=== PATIENT | male | born 1965 | race African-American/Black ===

== ENCOUNTER 2018-05-17 06:42 | Day surgery (SDC) | payer MEDICARE, OTHER ==
[~2018-05-17] VITALS: Ht 195.6 cm; Wt 123.4 kg
[~2018-05-17 06:42] MED LIST: FEBU40TA PO; INSHUMSS SUBCUT; INSU100I13 SQ; INSU100I19 SQ; OLME1TAB30 PO; ROSU10TA PO; VICTOZA
[2018-05-17] MEDS ORDERED: SODIUM CHLORIDE 0.9% 1,000 ML IV SCH (07:45)
[2018-05-17] MEDS ORDERED: BUPIVACAINE HCL/PF 0.5% (5MG/ML) 10ML ONE (08:29)
[2018-05-17] MEDS ORDERED: NORMAL SALINE 0.9% 10 ML SYR ONE (08:30)
[2018-05-17] MEDS ORDERED: BUPIVACAINE HCL/EPINEPHRINE 0.5%/0.0005 30ML ONE (08:30)
[2018-05-17] MEDS ORDERED: BACITRACIN 50,000 UNITS/VIAL ONE (08:30)
[2018-05-17] MEDS ORDERED: FENTANYL CITRATE/PF 50MCG/ML 2ML VIAL ONE (09:01)
[2018-05-17] MEDS ORDERED: PROPOFOL 200MG/20ML VIAL IV ONE (09:02)
[2018-05-17] MEDS ORDERED: MIDAZOLAM HCL 2 MG/2 ML VIAL ONE (09:02)
[2018-05-17] MEDS ORDERED: BACITRACIN ZINC 15GM TUBE TOP ONE (09:29)
[2018-05-17] MEDS ORDERED: ONDANSETRON HCL 4MG/2ML INJ IV PRN (09:45)
[2018-05-17] MEDS ORDERED: HYDROMORPHONE HCL/PF 2MG/ML CPJ IV PRN (09:45)
[2018-05-17] MEDS ORDERED: LABETALOL 5MG/ML SYR 20 MG/4 ML SYRINGE IV PRN (09:45)
[2018-05-17] MEDS ORDERED: MEPERIDINE HCL/PF 25MG/ML CPJ IV PRN (09:45)
== END 2018-05-17 11:15 | disposition home or self-care (01) ==
LOC: OR 06:42
PROVIDERS: ATTEND Urology
DX: A63.0 Anogenital (venereal) warts (principal); E11.9 Type 2 diabetes mellitus without complications; I10 Essential (primary) hypertension; Z79.899 Other long term (current) drug therapy; Z79.4 Long term (current) use of insulin; Z98.890 Other specified postprocedural states
CPT/HCPCS: 54055; 82962; 88305; J2250; J3010; J3490; J7030; A4216; J0171; J2704

== ENCOUNTER 2018-11-12 17:22 | Inpatient (IN) | payer MEDICARE, OTHER ==
[~2018-11-12] VITALS: Ht 195.6 cm; Wt 115.7 kg
[2018-11-12] MEDS ORDERED: SODIUM CHLORIDE 0.9% 1,000 ML IV ONE (21:10)
[2018-11-12] MEDS ORDERED: ONDANSETRON HCL 4MG/2ML INJ IV ONE (21:15)
[2018-11-12] MEDS ORDERED: FAMOTIDINE 20MG/2ML VIAL IV STA (23:09)
[2018-11-12] MEDS ORDERED: ONDANSETRON HCL 4MG/2ML INJ IV STA (23:09)
[2018-11-12 23:16] LABS: CHLORIDE 104 mEq/L (98-107)
[2018-11-12 23:20] LABS: INR 1.2; PARTIAL THROMBOPLASTIN TIME 29.4 sec (23.4-31.0); PROTHROMBIN TIME 12.3 sec (9.1-11.1)
[2018-11-12 23:32] LABS: BASOPHILS % 0.5 % (0.0-2.0); EOSINOPHILS % 0.2 % (0.0-5.0); HEMATOCRIT. 36.3 % (42.0-52.0); HEMOGLOBIN. 11.6 g/dL (14.0-18.0); LYMPHOCYTES % 11.2 % (20.0-50.0); MEAN PLATELET VOLUME 10.1 fl (7.4-10.4); MONOCYTES % 6.6 % (2.0-8.0); NEUTROPHILS % 81.5 % (40.0-76.0); PLATELET 277 x1000/uL (130-400); RED BLOOD CELL COUNT 4.65 mill/uL (4.7-6.1); RED CELL DISTRIBUTION WIDTH 13.9 % (11.6-14.6)
[2018-11-13] MEDS ORDERED: CEFTRIAXONE 1 G PREMIX 50 ML IV ONE (01:45)
[2018-11-13] MEDS ORDERED: AZITHROMYCIN 500 MG in DEXT 5% WATER 250 ML IV ONE (01:45)
[2018-11-13 02:51] LABS: CLARITY URINE CLEAR (CLEAR); COLOR URINE YELLOW (YELLOW); KETONES URINE NEGATIVE (NEGATIVE); LEUKOCYTE ESTERASE URINE NEGATIVE (NEGATIVE); NITRITE URINE NEGATIVE (NEGATIVE); OCCULT BLOOD URINE NEGATIVE (NEGATIVE); PROTEIN URINE 1+ (NEGATIVE); SPECIFIC GRAVITY URINE 1.014 (1.005-1.030); UROBILINOGEN URINE 0.2 E.U./dL (0.2-1.0)
[2018-11-13] MEDS ORDERED: MAGNESIUM/ALUMINUM HYDROXIDE/SIMETHICONE 30ML UDC PO ONE (04:15)
[2018-11-13] MEDS ORDERED: METOCLOPRAMIDE HCL 10MG/2ML VIAL IV ONE (04:15)
[2018-11-13 08:50] VITALS: BP 124/79
[2018-11-13 09:00] VITALS: BP 124/79
[2018-11-13] MEDS ORDERED: ERGO500013 PO (09:47)
[2018-11-13] MEDS ORDERED: COLC0.6C3 PO (09:49)
[2018-11-13] MEDS ORDERED: FEBU40TA PO (09:49)
[2018-11-13 11:31] VITALS: BP 112/67
[2018-11-13] MEDS ORDERED: DEXTROSE 50% WATER 50ML SYRINGE IV PRN (12:15)
[2018-11-13] MEDS: BLOOD SUGAR DIAGNOSTIC STRIP TEST SCH ×3 (12:24→21:03)
[2018-11-13] MEDS ORDERED: AMLODIPINE 5MG TABLET PO SCH (13:00)
[2018-11-13] MEDS: HYDROCHLOROTHIAZIDE 25MG TABLET PO SCH (13:13)
[2018-11-13] MEDS: LOSARTAN POTASSIUM 100 MG TABLET PO SCH (13:13)
[2018-11-13] MEDS: COLCHICINE 0.6MG TABLET PO SCH (13:13)
[2018-11-13] MEDS: INSULIN LISPRO 100 UNITS/ML SUBCUT SCH ×3 (13:16→21:00)
[2018-11-13 15:55] VITALS: BP 112/76
[2018-11-13] MEDS: SODIUM CHLORIDE 0.9% 1,000 ML IV SCH ×2 (17:10→21:04)
[2018-11-13 20:10] VITALS: BP 111/74
[2018-11-13] MEDS: ATORVASTATIN CALCIUM 20MG TABLET PO SCH (21:03)
[2018-11-14] VITALS: BP 123/87
[2018-11-14 04:00] VITALS: BP 108/69
[2018-11-14] MEDS: SODIUM CHLORIDE 0.9% 1,000 ML IV SCH ×2 (05:49→10:42)
[2018-11-14 06:42] LABS: BASOPHILS % 0.3 % (0.0-2.0); EOSINOPHILS % 1.5 % (0.0-5.0); HEMATOCRIT. 33.9 % (42.0-52.0); LYMPHOCYTES % 18.9 % (20.0-50.0); MEAN CORPUSCULAR HEMOGLOBIN 25.5 pg (28.0-32.0); MEAN CORPUSCULAR VOLUME 78.4 fL (80.0-94.0); MEAN PLATELET VOLUME 10.4 fl (7.4-10.4); MONOCYTES % 7.2 % (2.0-8.0); NEUTROPHILS % 72.1 % (40.0-76.0); PLATELET 238 x1000/uL (130-400); RED BLOOD CELL COUNT 4.33 mill/uL (4.7-6.1); RED CELL DISTRIBUTION WIDTH 13.9 % (11.6-14.6)
[2018-11-14] MEDS: BLOOD SUGAR DIAGNOSTIC STRIP TEST SCH ×4 (06:44→20:50)
[2018-11-14] MEDS: INSULIN LISPRO 100 UNITS/ML SUBCUT SCH ×4 (07:29→20:57)
[2018-11-14 07:42] LABS: PHOSPHORUS 3.7 mg/dL (2.5-4.9)
[2018-11-14 08:00] VITALS: BP 100/63
[2018-11-14] MEDS: LOSARTAN POTASSIUM 100 MG TABLET PO SCH (08:39)
[2018-11-14] MEDS: AMLODIPINE 10MG TABLET PO SCH (08:39)
[2018-11-14] MEDS: HYDROCHLOROTHIAZIDE 25MG TABLET PO SCH (08:39)
[2018-11-14] MEDS ORDERED: [UNRECOGNIZED DRUG - OTHER] PO SCH (09:00)
[2018-11-14] MEDS ORDERED: MEDICATION NOT ON FORMULARY EA (Rosuvastatin Calcium (Crestor) 10 MG) PO SCH (09:00)
[2018-11-14] MEDS ORDERED: ALLOPURINOL 100 MG TABLET PO SCH (09:00)
[2018-11-14] MEDS ORDERED: HCTZ PO SCH (09:00)
[2018-11-14] MEDS ORDERED: OLMESARTAN MED PO SCH (09:00)
[2018-11-14] MEDS ORDERED: AMLODIPINE PO SCH (09:00)
[2018-11-14 12:00] VITALS: BP 104/70
[2018-11-14 15:24] VITALS: BP 105/67
[2018-11-14 20:00] VITALS: BP 112/79
[2018-11-14] MEDS: ATORVASTATIN CALCIUM 20MG TABLET PO SCH (20:50)
[2018-11-15] VITALS: BP 105/65
[2018-11-15 04:00] VITALS: BP 136/86
[2018-11-15] MEDS ORDERED: MAGNESIUM/ALUMINUM HYDROXIDE/SIMETHICONE 30ML UDC PO PRN (04:00)
[2018-11-15] MEDS ORDERED: ONDANSETRON HCL 4MG/2ML INJ IV PRN (04:00)
[2018-11-15] MEDS: SODIUM CHLORIDE 0.9% 1,000 ML IV SCH ×3 (05:55→20:30)
[2018-11-15] MEDS: BLOOD SUGAR DIAGNOSTIC STRIP TEST SCH ×4 (06:55→20:29)
[2018-11-15 07:04] LABS: BASOPHILS % 0.3 % (0.0-2.0); EOSINOPHILS % 1.4 % (0.0-5.0); HEMATOCRIT. 34.9 % (42.0-52.0); HEMOGLOBIN. 11.3 g/dL (14.0-18.0); LYMPHOCYTES % 15.9 % (20.0-50.0); MEAN CORPUSCULAR HEMOGLOBIN 25.6 pg (28.0-32.0); MEAN CORPUSCULAR VOLUME 79.1 fL (80.0-94.0); MEAN PLATELET VOLUME 9.7 fl (7.4-10.4); MONOCYTES % 6.2 % (2.0-8.0); NEUTROPHILS % 76.2 % (40.0-76.0); PLATELET 222 x1000/uL (130-400); RED BLOOD CELL COUNT 4.41 mill/uL (4.7-6.1); RED CELL DISTRIBUTION WIDTH 13.7 % (11.6-14.6)
[2018-11-15] MEDS: INSULIN LISPRO 100 UNITS/ML SUBCUT SCH ×4 (07:50→20:30)
[2018-11-15 08:00] LABS: PHOSPHORUS 3.1 mg/dL (2.5-4.9)
[2018-11-15] MEDS: HYDROCHLOROTHIAZIDE 25MG TABLET PO SCH (08:58)
[2018-11-15] MEDS: PANTOPRAZOLE SODIUM 40 MG/VIAL IV SCH (08:58)
[2018-11-15] MEDS: AMLODIPINE 10MG TABLET PO SCH (08:59)
[2018-11-15] MEDS: LOSARTAN POTASSIUM 100 MG TABLET PO SCH (08:59)
[2018-11-15] MEDS ORDERED: COLCHICINE 0.6MG TABLET PO SCH (09:00)
[2018-11-15 11:36] VITALS: BP 102/66
[2018-11-15 15:35] VITALS: BP 115/72
[2018-11-15 20:00] VITALS: BP 123/82
[2018-11-15] MEDS: ATORVASTATIN CALCIUM 20MG TABLET PO SCH (20:30)
[2018-11-15] MEDS ORDERED: LACTULOSE 20G/30ML UDC PO PRN (21:45)
[2018-11-15] MEDS: DOCUSATE SODIUM 100MG CAPSULE PO SCH (21:54)
[2018-11-16] VITALS: BP 128/79
[2018-11-16 04:00] VITALS: BP 124/77
[2018-11-16] MEDS: SODIUM CHLORIDE 0.9% 1,000 ML IV SCH ×2 (05:28→16:00)
[2018-11-16] MEDS: BLOOD SUGAR DIAGNOSTIC STRIP TEST SCH ×2 (06:25→12:20)
[2018-11-16 07:17] LABS: BASOPHILS % 0.6 % (0.0-2.0); EOSINOPHILS % 3.1 % (0.0-5.0); HEMATOCRIT. 33.2 % (42.0-52.0); HEMOGLOBIN. 10.6 g/dL (14.0-18.0); LYMPHOCYTES % 25.9 % (20.0-50.0); MEAN CORPUSCULAR HEMOGLOBIN 25.5 pg (28.0-32.0); MEAN CORPUSCULAR VOLUME 79.7 fL (80.0-94.0); MEAN PLATELET VOLUME 9.8 fl (7.4-10.4); MONOCYTES % 7.7 % (2.0-8.0); NEUTROPHILS % 62.7 % (40.0-76.0); PLATELET 177 x1000/uL (130-400); RED BLOOD CELL COUNT 4.16 mill/uL (4.7-6.1); RED CELL DISTRIBUTION WIDTH 13.8 % (11.6-14.6)
[2018-11-16] MEDS: INSULIN LISPRO 100 UNITS/ML SUBCUT SCH ×2 (07:50→12:50)
[2018-11-16 08:00] VITALS: BP 129/76
[2018-11-16] MEDS: HYDROCHLOROTHIAZIDE 25MG TABLET PO SCH (09:00)
[2018-11-16] MEDS: PANTOPRAZOLE SODIUM 40 MG/VIAL IV SCH (09:00)
[2018-11-16] MEDS ORDERED: ALLOPURINOL 100 MG TABLET PO SCH (09:00)
[2018-11-16] MEDS: DOCUSATE SODIUM 100MG CAPSULE PO SCH ×2 (09:01→15:58)
[2018-11-16] MEDS: COLCHICINE 0.6MG TABLET PO SCH (09:01)
[2018-11-16] MEDS: LOSARTAN POTASSIUM 100 MG TABLET PO SCH (09:01)
[2018-11-16] MEDS: AMLODIPINE 10MG TABLET PO SCH (09:48)
[2018-11-16 12:00] VITALS: BP 129/86
[2018-11-16 16:00] VITALS: BP 120/81
[2018-11-16 17:55] VITALS: BP 120/81
[2018-11-17] MEDS ORDERED: ERGOCALCIFEROL 50000UNITS CAPSULE PO SCH (09:00)
== END 2018-11-16 18:59 | disposition home or self-care (01) | DRG 684 ==
LOC: ER 17:22 → 6WST 11-13 00:06 → EDBEDREQDT 11-13 00:19 → EDBEDREQ 11-13 00:19 → EDBEDREQTM 11-13 00:19 → ENRESERV 11-13 08:12
PROVIDERS: ADMIT Internal Medicine; ATTEND Internal Medicine
DX: N17.0 Acute kidney failure with tubular necrosis (principal); N18.4 Chronic kidney disease, stage 4 (severe); E11.65 Type 2 diabetes mellitus with hyperglycemia; E86.0 Dehydration; E11.40 Type 2 diabetes mellitus with diabetic neuropathy, unspecified; E66.9 Obesity, unspecified; E78.5 Hyperlipidemia, unspecified; I95.9 Hypotension, unspecified; E11.22 Type 2 diabetes mellitus with diabetic chronic kidney disease; R10.9 Unspecified abdominal pain; M10.9 Gout, unspecified; I12.9 Hypertensive chronic kidney disease with stage 1 through stage 4 chronic kidney disease, or unspecified chronic kidney disease; F41.8 Other specified anxiety disorders; D64.9 Anemia, unspecified; Z68.30 Body mass index [BMI] 30.0-30.9, adult; Z79.899 Other long term (current) drug therapy
CPT/HCPCS: 36415; 71045; 74018; 74176; 80048; 82150; 82570; 82962; 83605; 83735; 83880; 83935; 83970; 84100; 84145; 84300; 84484; 93005; 96365; 96367; 96375; 96376; 99285; C9113; J0456; J0696; J1815; J2405; J2765; J3490; J7030; J7060

== ENCOUNTER 2020-03-11 13:43 | Inpatient (IN) | payer MEDICARE, MEDICAID ==
[~2020-03-11] VITALS: Ht 195.6 cm; Wt 115.7 kg
[~2020-03-11 13:43] MED LIST changes: +COLC0.6C3 PO; +CRES10 PO; +ERGO500013 PO; -ROSU10TA PO; -VICTOZA
[2020-03-11 14:31] LABS: BASOPHILS % 0.5 % (0.0-2.0); EOSINOPHILS % 0.6 % (0.0-5.0); HEMATOCRIT. 33.8 % (42.0-52.0); HEMOGLOBIN. 10.9 g/dL (14.0-18.0); MEAN CORPUSCULAR HEMOGLOBIN 25.4 pg (28.0-32.0); MEAN CORPUSCULAR VOLUME 78.8 fL (80.0-94.0); MEAN PLATELET VOLUME 8.2 fl (7.4-10.4); MONOCYTES % 6.2 % (2.0-8.0); NEUTROPHILS % 77.7 % (40.0-76.0); PLATELET 385 x1000/uL (130-400); RED BLOOD CELL COUNT 4.28 mill/uL (4.7-6.1); RED CELL DISTRIBUTION WIDTH 14.1 % (11.6-14.6)
[2020-03-11 14:38] LABS: CHLORIDE 106 mEq/L (98-107)
[2020-03-11 14:41] LABS: INR 1.2; PROTHROMBIN TIME 12.1 sec (9.6-11.0)
[2020-03-11] MEDS ORDERED: SODIUM CHLORIDE 0.9% 500 ML IV ONE (15:00)
[2020-03-11] MEDS ORDERED: VANCOMYCIN 1 G PREMIX 200 ML IV ONE (15:45)
[2020-03-11] MEDS ORDERED: PIPERACILLIN/TAZ 3.375G PREMIX 50 ML IV ONE (15:45)
[2020-03-11] MEDS ORDERED: DEXTROSE 50% WATER 50ML SYRINGE IV PRN (17:30)
[2020-03-11] MEDS ORDERED: ONDANSETRON HCL 4MG/2ML INJ IV PRN (17:30)
[2020-03-11] MEDS ORDERED: ACETAMINOPHEN 325MG TABLET PO PRN (17:30)
[2020-03-11] MEDS ORDERED: DIPHENHYDRAMINE 50MG/ML VIAL IV PRN (17:30)
[2020-03-11] MEDS ORDERED: CLONIDINE 0.1MG TABLET PO PRN (17:30)
[2020-03-11] MEDS: INSULIN LISPRO 100 UNITS/ML SUBCUT SCH ×2 (18:20→21:00)
[2020-03-11] MEDS: BLOOD SUGAR DIAGNOSTIC STRIP TEST SCH (21:36)
[2020-03-11 22:10] VITALS: BP 139/86
[2020-03-11 22:11] VITALS: BP 139/86
[2020-03-12] VITALS (7 sets, daily range): BP systolic 103–129; BP diastolic 55–71
[2020-03-12] MEDS: BLOOD SUGAR DIAGNOSTIC STRIP TEST SCH ×4 (05:23→20:23)
[2020-03-12] MEDS: INSULIN LISPRO 100 UNITS/ML SUBCUT SCH ×4 (06:03→20:23)
[2020-03-12] MEDS: SODIUM CHLORIDE 0.9% INJ 3ML FLUSH IVF SCH ×3 (06:32→23:29)
[2020-03-12 09:16] LABS: BASOPHILS % 0.7 % (0.0-2.0); EOSINOPHILS % 1.4 % (0.0-5.0); HEMATOCRIT. 32.6 % (42.0-52.0); HEMOGLOBIN. 10.5 g/dL (14.0-18.0); LYMPHOCYTES % 15.7 % (20.0-50.0); MEAN CORPUSCULAR HEMOGLOBIN 25.6 pg (28.0-32.0); MEAN CORPUSCULAR VOLUME 79.3 fL (80.0-94.0); MEAN PLATELET VOLUME 7.8 fl (7.4-10.4); MONOCYTES % 6.7 % (2.0-8.0); NEUTROPHILS % 75.5 % (40.0-76.0); PLATELET 331 x1000/uL (130-400); RED BLOOD CELL COUNT 4.11 mill/uL (4.7-6.1); RED CELL DISTRIBUTION WIDTH 14.6 % (11.6-14.6)
[2020-03-12 09:26] LABS: PHOSPHORUS 5.4 mg/dL (2.5-4.9)
[2020-03-12] MEDS: SODIUM BICARBONATE 50 MEQ in SODIUM CHLORIDE 0.45% 1,000 ML IV SCH (10:12)
[2020-03-12 12:09] LABS: HEPATITIS B SURFACE ANTIGEN NEGATIVE
[2020-03-12] MEDS: ACETAMINOPHEN 325MG TABLET PO PRN (18:14)
[2020-03-13] VITALS: BP 119/76
[2020-03-13 04:00] VITALS: BP 113/68
[2020-03-13] MEDS: SODIUM CHLORIDE 0.9% INJ 3ML FLUSH IVF SCH ×3 (06:11→22:41)
[2020-03-13] MEDS: INSULIN LISPRO 100 UNITS/ML SUBCUT SCH ×4 (07:40→20:38)
[2020-03-13] MEDS: BLOOD SUGAR DIAGNOSTIC STRIP TEST SCH ×4 (07:52→20:39)
[2020-03-13 07:59] VITALS: BP 104/59
[2020-03-13 10:55] LABS: BASOPHILS % 0.8 % (0.0-2.0); EOSINOPHILS % 2.1 % (0.0-5.0); HEMATOCRIT. 31.1 % (42.0-52.0); HEMOGLOBIN. 10.2 g/dL (14.0-18.0); LYMPHOCYTES % 17.4 % (20.0-50.0); MEAN CORPUSCULAR HEMOGLOBIN 25.6 pg (28.0-32.0); MEAN CORPUSCULAR VOLUME 78.3 fL (80.0-94.0); MEAN PLATELET VOLUME 8.3 fl (7.4-10.4); NEUTROPHILS % 72.7 % (40.0-76.0); PLATELET 317 x1000/uL (130-400); RED BLOOD CELL COUNT 3.97 mill/uL (4.7-6.1); RED CELL DISTRIBUTION WIDTH 14.4 % (11.6-14.6)
[2020-03-13 12:00] VITALS: BP 107/65
[2020-03-13] MEDS ORDERED: CEPHALEXIN 250MG CAPSULE PO SCH (12:00)
[2020-03-13] MEDS: SODIUM BICARBONATE 50 MEQ in SODIUM CHLORIDE 0.45% 1,000 ML IV SCH ×3 (12:21)
[2020-03-13] MEDS ORDERED: CEFAZOLIN 500 MG in DEXTROSE 5% WATER 50 ML IV SCH (14:15)
[2020-03-13 16:00] VITALS: BP 97/76
[2020-03-13] MEDS: CEFAZOLIN 1000MG PREMIX 50 ML IV SCH (16:17)
[2020-03-13 20:00] VITALS: BP 109/61
[2020-03-13] MEDS: ACETAMINOPHEN 325MG TABLET PO PRN (20:38)
[2020-03-14] VITALS (7 sets, daily range): BP systolic 95–120; BP diastolic 51–70
[2020-03-14] MEDS: SODIUM CHLORIDE 0.9% INJ 3ML FLUSH IVF SCH ×3 (05:26→21:51)
[2020-03-14] MEDS: SODIUM BICARBONATE 50 MEQ in SODIUM CHLORIDE 0.45% 1,000 ML IV SCH (05:26)
[2020-03-14] MEDS: INSULIN LISPRO 100 UNITS/ML SUBCUT SCH ×4 (06:04→21:00)
[2020-03-14] MEDS: BLOOD SUGAR DIAGNOSTIC STRIP TEST SCH ×4 (06:04→21:50)
[2020-03-14 07:37] LABS: BASOPHILS % 0.8 % (0.0-2.0); EOSINOPHILS % 2.1 % (0.0-5.0); HEMATOCRIT. 29.8 % (42.0-52.0); HEMOGLOBIN. 9.8 g/dL (14.0-18.0); LYMPHOCYTES % 18.7 % (20.0-50.0); MEAN CORPUSCULAR HEMOGLOBIN 25.7 pg (28.0-32.0); MEAN CORPUSCULAR VOLUME 78.3 fL (80.0-94.0); MEAN PLATELET VOLUME 8.2 fl (7.4-10.4); MONOCYTES % 8.5 % (2.0-8.0); NEUTROPHILS % 69.9 % (40.0-76.0); PLATELET 293 x1000/uL (130-400); RED BLOOD CELL COUNT 3.81 mill/uL (4.7-6.1); RED CELL DISTRIBUTION WIDTH 14.3 % (11.6-14.6)
[2020-03-14 08:14] LABS: PHOSPHORUS 4.7 mg/dL (2.5-4.9)
[2020-03-14] MEDS ORDERED: HEPARIN SODIUM 1,000 UNIT/1ML VIAL IV NR (16:45)
[2020-03-14] MEDS: CEFAZOLIN 1000MG PREMIX 50 ML IV SCH (22:37)
[2020-03-14] MEDS: ACETAMINOPHEN 325MG TABLET PO PRN (22:38)
[2020-03-15] VITALS: BP 105/76
[2020-03-15 04:00] VITALS: BP 112/69
[2020-03-15] MEDS: SODIUM CHLORIDE 0.9% INJ 3ML FLUSH IVF SCH ×3 (06:00→22:00)
[2020-03-15] MEDS: BLOOD SUGAR DIAGNOSTIC STRIP TEST SCH ×4 (06:26→21:00)
[2020-03-15] MEDS: INSULIN LISPRO 100 UNITS/ML SUBCUT SCH ×4 (06:52→21:00)
[2020-03-15 08:00] VITALS: BP 123/77
[2020-03-15 08:02] LABS: BASOPHILS % 0.7 % (0.0-2.0); EOSINOPHILS % 2.2 % (0.0-5.0); HEMATOCRIT. 29.5 % (42.0-52.0); HEMOGLOBIN. 9.4 g/dL (14.0-18.0); LYMPHOCYTES % 17.8 % (20.0-50.0); MEAN CORPUSCULAR HEMOGLOBIN 24.9 pg (28.0-32.0); MEAN CORPUSCULAR VOLUME 77.9 fL (80.0-94.0); MEAN PLATELET VOLUME 8.2 fl (7.4-10.4); MONOCYTES % 8.7 % (2.0-8.0); NEUTROPHILS % 70.6 % (40.0-76.0); PLATELET 267 x1000/uL (130-400); RED BLOOD CELL COUNT 3.78 mill/uL (4.7-6.1); RED CELL DISTRIBUTION WIDTH 14.2 % (11.6-14.6)
[2020-03-15 08:07] LABS: *CREATININE RANDOM URINE 93.7 mg/dL (Not Estab.)
[2020-03-15 12:00] VITALS: BP 119/76
[2020-03-15] MEDS: CALCIUM ACETATE 667MG CAPSULE PO SCH ×2 (12:05→17:01)
[2020-03-15] MEDS: FOLIC ACID/VITAMIN B COMP W-C TABLET PO SCH (12:06)
[2020-03-15] MEDS: CEFAZOLIN 1000MG PREMIX 50 ML IV SCH (15:45)
[2020-03-15 16:00] VITALS: BP 108/62
[2020-03-15 20:00] VITALS: BP 96/63
[2020-03-16] VITALS: BP 111/64
[2020-03-16 04:00] VITALS: BP 94/61
[2020-03-16] MEDS: SODIUM CHLORIDE 0.9% INJ 3ML FLUSH IVF SCH ×2 (05:23→14:00)
[2020-03-16] MEDS: BLOOD SUGAR DIAGNOSTIC STRIP TEST SCH ×4 (06:15→21:00)
[2020-03-16] MEDS: INSULIN LISPRO 100 UNITS/ML SUBCUT SCH ×4 (06:15→21:00)
[2020-03-16] MEDS: ACETAMINOPHEN 325MG TABLET PO PRN (06:37)
[2020-03-16 07:07] LABS: BASOPHILS % 0.7 % (0.0-2.0); EOSINOPHILS % 2.6 % (0.0-5.0); HEMATOCRIT. 28.5 % (42.0-52.0); HEMOGLOBIN. 9.2 g/dL (14.0-18.0); LYMPHOCYTES % 17.6 % (20.0-50.0); MEAN CORPUSCULAR HEMOGLOBIN 25.3 pg (28.0-32.0); MEAN CORPUSCULAR VOLUME 78.5 fL (80.0-94.0); MEAN PLATELET VOLUME 8.2 fl (7.4-10.4); MONOCYTES % 9.9 % (2.0-8.0); NEUTROPHILS % 69.2 % (40.0-76.0); PLATELET 260 x1000/uL (130-400); RED BLOOD CELL COUNT 3.63 mill/uL (4.7-6.1); RED CELL DISTRIBUTION WIDTH 14.3 % (11.6-14.6)
[2020-03-16 07:42] LABS: PHOSPHORUS 4.6 mg/dL (2.5-4.9)
[2020-03-16 08:00] VITALS: BP 115/63
[2020-03-16] MEDS: CALCIUM ACETATE 667MG CAPSULE PO SCH ×3 (08:08→16:59)
[2020-03-16] MEDS: FOLIC ACID/VITAMIN B COMP W-C TABLET PO SCH (08:08)
[2020-03-16 12:00] VITALS: BP 101/67
[2020-03-16] MEDS: CEFAZOLIN 1000MG PREMIX 50 ML IV SCH (15:59)
[2020-03-16 16:00] VITALS: BP 104/58
[2020-03-16 20:00] VITALS: BP 98/78
[2020-03-17] VITALS (18 sets, daily range): BP systolic 100–154; BP diastolic 70–99
[2020-03-17] MEDS: INSULIN LISPRO 100 UNITS/ML SUBCUT SCH ×4 (07:40→21:04)
[2020-03-17] MEDS: FOLIC ACID/VITAMIN B COMP W-C TABLET PO SCH (08:27)
[2020-03-17] MEDS: CALCIUM ACETATE 667MG CAPSULE PO SCH ×3 (08:27→18:02)
[2020-03-17] MEDS ORDERED: SODIUM BICARBONATE 4% (2.4MEQ) 5ML VIAL IV ONE (08:51)
[2020-03-17] MEDS ORDERED: HEPARIN 1000 UNITS/ML 10ML ONE (08:51)
[2020-03-17] MEDS ORDERED: LIDOCAINE HCL 1% 20ML VIAL (Pyxis) INJ ONE (08:51)
[2020-03-17] MEDS ORDERED: FENTANYL CITRATE/PF 50MCG/ML 2ML VIAL ONE (09:19)
[2020-03-17] MEDS ORDERED: FENTANYL CITRATE/PF 50MCG/ML 2ML VIAL IV SCH (09:45)
[2020-03-17 11:21] LABS: HEMATOCRIT 28.4 % (42.0-52.0); MEAN CORPUSCULAR HEMOGLOBIN 25.2 pg (28.0-32.0); MEAN CORPUSCULAR VOLUME 78.9 fL (80.0-94.0); PLATELET 279 x1000/uL (130-400); RED CELL DISTRIBUTION WIDTH 14.2 % (11.6-14.6)
[2020-03-17] MEDS: BLOOD SUGAR DIAGNOSTIC STRIP TEST SCH ×3 (11:38→21:04)
[2020-03-17] MEDS: CEFAZOLIN 1000MG PREMIX 50 ML IV SCH (16:20)
[2020-03-17] MEDS: SODIUM CHLORIDE 0.9% INJ 3ML FLUSH IVF SCH ×2 (16:21→21:04)
[2020-03-18] VITALS: BP 175/78
[2020-03-18 04:00] VITALS: BP 90/57
[2020-03-18] MEDS: BLOOD SUGAR DIAGNOSTIC STRIP TEST SCH ×4 (06:29→21:35)
[2020-03-18] MEDS: SODIUM CHLORIDE 0.9% INJ 3ML FLUSH IVF SCH ×3 (06:29→21:35)
[2020-03-18] MEDS: INSULIN LISPRO 100 UNITS/ML SUBCUT SCH ×4 (07:40→21:00)
[2020-03-18 08:00] VITALS: BP 117/77
[2020-03-18] MEDS: FOLIC ACID/VITAMIN B COMP W-C TABLET PO SCH (09:14)
[2020-03-18] MEDS: CALCIUM ACETATE 667MG CAPSULE PO SCH ×3 (09:15→17:50)
[2020-03-18 12:00] VITALS: BP 109/85
[2020-03-18 16:05] VITALS: BP 118/81
[2020-03-18 20:00] VITALS: BP 106/61
[2020-03-19] VITALS: BP 110/60
[2020-03-19 04:00] VITALS: BP 121/66
[2020-03-19] MEDS: SODIUM CHLORIDE 0.9% INJ 3ML FLUSH IVF SCH ×3 (05:59→21:04)
[2020-03-19 06:24] LABS: BASOPHILS % 0.6 % (0.0-2.0); EOSINOPHILS % 2.5 % (0.0-5.0); HEMATOCRIT. 29.4 % (42.0-52.0); HEMOGLOBIN. 9.3 g/dL (14.0-18.0); LYMPHOCYTES % 17.1 % (20.0-50.0); MEAN CORPUSCULAR HEMOGLOBIN 25.2 pg (28.0-32.0); MEAN CORPUSCULAR VOLUME 79.7 fL (80.0-94.0); MEAN PLATELET VOLUME 8.4 fl (7.4-10.4); MONOCYTES % 9.3 % (2.0-8.0); NEUTROPHILS % 70.5 % (40.0-76.0); PLATELET 282 x1000/uL (130-400); RED BLOOD CELL COUNT 3.69 mill/uL (4.7-6.1); RED CELL DISTRIBUTION WIDTH 14.3 % (11.6-14.6)
[2020-03-19] MEDS: BLOOD SUGAR DIAGNOSTIC STRIP TEST SCH ×4 (06:25→20:57)
[2020-03-19] MEDS: INSULIN LISPRO 100 UNITS/ML SUBCUT SCH ×4 (07:20→20:57)
[2020-03-19 08:00] VITALS: BP 109/68
[2020-03-19] MEDS: CALCIUM ACETATE 667MG CAPSULE PO SCH ×3 (08:29→16:42)
[2020-03-19] MEDS: FOLIC ACID/VITAMIN B COMP W-C TABLET PO SCH (08:29)
[2020-03-19 12:00] VITALS: BP 114/64
[2020-03-19 16:00] VITALS: BP 128/76
[2020-03-19 20:00] VITALS: BP 102/84
[2020-03-20] VITALS: BP 105/78
[2020-03-20 04:00] VITALS: BP 101/74
[2020-03-20] MEDS: SODIUM CHLORIDE 0.9% INJ 3ML FLUSH IVF SCH ×3 (05:54→23:35)
[2020-03-20] MEDS: BLOOD SUGAR DIAGNOSTIC STRIP TEST SCH ×4 (06:21→21:00)
[2020-03-20] MEDS: INSULIN LISPRO 100 UNITS/ML SUBCUT SCH ×4 (07:20→21:00)
[2020-03-20 08:00] VITALS: BP 92/55
[2020-03-20] MEDS: CALCIUM ACETATE 667MG CAPSULE PO SCH ×3 (08:48→17:15)
[2020-03-20] MEDS: FOLIC ACID/VITAMIN B COMP W-C TABLET PO SCH (08:48)
[2020-03-20 12:00] VITALS: BP 97/62
[2020-03-20 16:00] VITALS: BP 110/68
[2020-03-20 20:00] VITALS: BP 120/73
[2020-03-21] VITALS: BP 110/56
[2020-03-21 04:59] VITALS: BP 95/65
[2020-03-21 05:44] LABS: BASOPHILS % 0.8 % (0.0-2.0); EOSINOPHILS % 1.7 % (0.0-5.0); HEMATOCRIT. 31.4 % (42.0-52.0); HEMOGLOBIN. 10.1 g/dL (14.0-18.0); LYMPHOCYTES % 20.9 % (20.0-50.0); MEAN CORPUSCULAR HEMOGLOBIN 25.3 pg (28.0-32.0); MEAN CORPUSCULAR VOLUME 78.7 fL (80.0-94.0); MEAN PLATELET VOLUME 8.7 fl (7.4-10.4); MONOCYTES % 8.9 % (2.0-8.0); NEUTROPHILS % 67.7 % (40.0-76.0); PLATELET 294 x1000/uL (130-400); RED BLOOD CELL COUNT 3.98 mill/uL (4.7-6.1)
[2020-03-21] MEDS: SODIUM CHLORIDE 0.9% INJ 3ML FLUSH IVF SCH ×2 (06:54→14:08)
[2020-03-21] MEDS: INSULIN LISPRO 100 UNITS/ML SUBCUT SCH ×4 (07:50→21:00)
[2020-03-21 08:00] VITALS: BP 92/48
[2020-03-21] MEDS: BLOOD SUGAR DIAGNOSTIC STRIP TEST SCH ×4 (08:07→21:43)
[2020-03-21] MEDS: FOLIC ACID/VITAMIN B COMP W-C TABLET PO SCH (08:52)
[2020-03-21] MEDS: CALCIUM ACETATE 667MG CAPSULE PO SCH ×3 (08:52→16:16)
[2020-03-21 12:00] VITALS: BP 111/65
[2020-03-21] MEDS: ACETAMINOPHEN 325MG TABLET PO PRN (12:40)
[2020-03-21 16:00] VITALS: BP 113/50
[2020-03-21] MEDS ORDERED: HEPARIN SODIUM 1,000 UNIT/1ML VIAL IV SCH (18:00)
[2020-03-21 20:00] VITALS: BP 102/83
[2020-03-22] VITALS: BP 99/61
[2020-03-22] MEDS: SODIUM CHLORIDE 0.9% INJ 3ML FLUSH IVF SCH ×3 (02:55→15:31)
[2020-03-22 04:00] VITALS: BP 93/59
[2020-03-22] MEDS: BLOOD SUGAR DIAGNOSTIC STRIP TEST SCH ×3 (07:20→17:29)
[2020-03-22] MEDS: INSULIN LISPRO 100 UNITS/ML SUBCUT SCH ×3 (07:50→17:30)
[2020-03-22 08:00] VITALS: BP 93/60
[2020-03-22] MEDS: FOLIC ACID/VITAMIN B COMP W-C TABLET PO SCH (09:18)
[2020-03-22] MEDS: CALCIUM ACETATE 667MG CAPSULE PO SCH ×3 (09:18→17:23)
[2020-03-22 12:00] VITALS: BP 95/54
[2020-03-22 16:00] VITALS: BP 102/63
[2020-03-22 18:21] VITALS: BP 102/63
== END 2020-03-22 19:32 | disposition home health service (06) | DRG 674 ==
LOC: ER 13:43 → 8WST 16:18 → ENRESERV 20:46 → 6EST 03-18 15:40
PROVIDERS: ADMIT Internal Medicine; ATTEND Internal Medicine
PROC: 02HV33Z Insertion of Infusion Device into Superior Vena Cava, Percutaneous Approach (ICD-10-PCS; 2020-03-11)
PROC: B548ZZA Ultrasonography of Superior Vena Cava, Guidance (ICD-10-PCS; 2020-03-11)
PROC: 5A1D70Z Performance of Urinary Filtration, Intermittent, Less than 6 Hours Per Day (ICD-10-PCS; 2020-03-13)
PROC: 5A1D70Z Performance of Urinary Filtration, Intermittent, Less than 6 Hours Per Day (ICD-10-PCS; 2020-03-14)
PROC: 0JH63XZ Insertion of Tunneled Vascular Access Device into Chest Subcutaneous Tissue and Fascia, Percutaneous Approach (ICD-10-PCS; principal; 2020-03-17)
PROC: 02H633Z Insertion of Infusion Device into Right Atrium, Percutaneous Approach (ICD-10-PCS; 2020-03-17)
PROC: B518ZZA Fluoroscopy of Superior Vena Cava, Guidance (ICD-10-PCS; 2020-03-17)
PROC: 02PYX3Z Removal of Infusion Device from Great Vessel, External Approach (ICD-10-PCS; 2020-03-17)
PROC: 5A1D70Z Performance of Urinary Filtration, Intermittent, Less than 6 Hours Per Day (ICD-10-PCS; 2020-03-18)
PROC: 5A1D70Z Performance of Urinary Filtration, Intermittent, Less than 6 Hours Per Day (ICD-10-PCS; 2020-03-19)
PROC: 5A1D70Z Performance of Urinary Filtration, Intermittent, Less than 6 Hours Per Day (ICD-10-PCS; 2020-03-21)
DX: N17.9 Acute kidney failure, unspecified (principal); L02.214 Cutaneous abscess of groin; I12.0 Hypertensive chronic kidney disease with stage 5 chronic kidney disease or end stage renal disease; N18.6 End stage renal disease; E87.5 Hyperkalemia; E86.9 Volume depletion, unspecified; E11.22 Type 2 diabetes mellitus with diabetic chronic kidney disease; F79 Unspecified intellectual disabilities; E78.5 Hyperlipidemia, unspecified; E86.0 Dehydration; R62.50 Unspecified lack of expected normal physiological development in childhood; N20.0 Calculus of kidney; N28.1 Cyst of kidney, acquired; N40.0 Benign prostatic hyperplasia without lower urinary tract symptoms; M10.9 Gout, unspecified; Z20.828 Contact with and (suspected) exposure to other viral communicable diseases; G40.909 Epilepsy, unspecified, not intractable, without status epilepticus; E11.21 Type 2 diabetes mellitus with diabetic nephropathy; I95.9 Hypotension, unspecified; Z79.4 Long term (current) use of insulin; Z79.899 Other long term (current) drug therapy; Z82.49 Family history of ischemic heart disease and other diseases of the circulatory system; Z80.9 Family history of malignant neoplasm, unspecified; Z83.3 Family history of diabetes mellitus
CPT/HCPCS: 36415; 36589; 71045; 76770; 76937; 77001; 80048; 80053; 82043; 82570; 82962; 83036; 83735; 83880; 83970; 84100; 84484; 85025; 85027; 86705; 86706; 86803; 87070; 87077; 87186; 87340; 93005; 96365; 99152; 99153; 99291; C1750; C1752; J0690; J1644; J1815; J2543; J3010; J3370; J3490; G0500; U0003-CS